=== PATIENT | female | born 1990 | race Caucasian/White ===

== ENCOUNTER 2019-08-04 17:26 | Observation (INO) | payer MEDICAID ==
[~2019-08-04] VITALS: Ht 160 cm; Wt 107.5 kg
[2019-08-04 18:03] LABS: CLARITY URINE CLEAR (CLEAR); COLOR URINE YELLOW (YELLOW); KETONES URINE NEGATIVE (NEGATIVE); LEUKOCYTE ESTERASE URINE TRACE (NEGATIVE); NITRITE URINE NEGATIVE (NEGATIVE); OCCULT BLOOD URINE NEGATIVE (NEGATIVE); PH URINE 6.5 (4.5-8.0); PROTEIN URINE NEGATIVE (NEGATIVE); SPECIFIC GRAVITY URINE 1.005 (1.005-1.030); UROBILINOGEN URINE 0.2 E.U./dL (0.2-1.0)
[2019-08-04 18:08] LABS: BASOPHILS % 0.3 % (0.0-2.0); EOSINOPHILS % 0.7 % (0.0-5.0); HEMATOCRIT. 36.7 % (36.0-48.0); HEMOGLOBIN. 12.5 g/dL (12.0-16.0); LYMPHOCYTES % 22.6 % (20.0-50.0); MEAN CORPUSCULAR HEMOGLOBIN 29.1 pg (28.0-32.0); MEAN CORPUSCULAR VOLUME 85.8 fL (81.0-99.0); MEAN PLATELET VOLUME 11.7 fl (7.4-10.4); MONOCYTES % 6.1 % (2.0-8.0); NEUTROPHILS % 70.3 % (40.0-76.0); PLATELET 107 x1000/uL (130-400); RED BLOOD CELL COUNT 4.28 mill/uL (4.2-5.4); RED CELL DISTRIBUTION WIDTH 13.5 % (11.6-14.6)
[2019-08-04 18:18] LABS: CHLORIDE 111 mEq/L (98-107)
[2019-08-04 18:23] LABS: D-DIMER 2.41 mg/L FEU (<0.50); INR 0.9; PARTIAL THROMBOPLASTIN TIME 26.7 sec (23.4-31.0); PROTHROMBIN TIME 9.3 sec (9.6-11.0)
[2019-08-04] MEDS ORDERED: NPH,100I SQ (18:34)
[2019-08-04] MEDS ORDERED: LABE100T5 MT (18:34)
== END 2019-08-04 20:00 | disposition home or self-care (01) ==
LOC: 8 EST LDRP 17:26
PROVIDERS: ADMIT Obstetrics & Gynecology; ATTEND Obstetrics & Gynecology
DX: O16.3 Unspecified maternal hypertension, third trimester (principal); Z3A.36 36 weeks gestation of pregnancy
CPT/HCPCS: 36415; 80053; 81003; 84550; 85025; 85379; 85384; 85610; 85730; 99281; G0378

== ENCOUNTER 2019-08-11 16:57 | Inpatient (IN) | payer MEDICAID ==
[~2019-08-11] VITALS: Ht 165.1 cm; Wt 107.5 kg
[~2019-08-11 16:57] MED LIST: LABE100T5 MT; NPH,100I SQ
[2019-08-11] MEDS ORDERED: DEXT 5%/LR + PITOCIN 20UNITS/L 1,000 ML IV SCH (17:41)
[2019-08-11] MEDS ORDERED: MISOPROSTOL 100MCG TABLET VG PRN (17:45)
[2019-08-11] MEDS ORDERED: NALOXONE HCL 0.4 MG/ML 1ML VIAL IM PRN (17:45)
[2019-08-11] MEDS ORDERED: LIDOCAINE HCL 1% 20ML VIAL (Pyxis) INJ INFIL SCH (17:45)
[2019-08-11] MEDS ORDERED: PENICILLIN G POTASSIUM 5 MMU in DEXT 5% WATER 100 ML IV SCH (18:00)
[2019-08-11] MEDS ORDERED: MISOPROSTOL 100MCG TABLET RC SCH (18:00)
[2019-08-11] MEDS ORDERED: MISOPROSTOL 200MCG TABLET RC SCH (18:15)
[2019-08-11 19:15] LABS: BASOPHILS % 0.5 % (0.0-2.0); EOSINOPHILS % 0.7 % (0.0-5.0); HEMATOCRIT. 37.6 % (36.0-48.0); HEMOGLOBIN. 12.7 g/dL (12.0-16.0); LYMPHOCYTES % 23.9 % (20.0-50.0); MEAN CORPUSCULAR VOLUME 85.9 fL (81.0-99.0); MEAN PLATELET VOLUME 11.3 fl (7.4-10.4); MONOCYTES % 4.6 % (2.0-8.0); NEUTROPHILS % 70.3 % (40.0-76.0); PLATELET 102 x1000/uL (130-400); RED BLOOD CELL COUNT 4.38 mill/uL (4.2-5.4); RED CELL DISTRIBUTION WIDTH 13.5 % (11.6-14.6)
[2019-08-11 19:19] LABS: CHLORIDE 109 mEq/L (98-107)
[2019-08-11 19:22] LABS: INR 0.9; PARTIAL THROMBOPLASTIN TIME 26.6 sec (23.4-31.0); PROTHROMBIN TIME 9.4 sec (9.6-11.0)
[2019-08-11] MEDS ORDERED: LABETALOL HCL 100MG TABLET PO SCH (19:30)
[2019-08-11 19:51] LABS: HEPATITIS B SURFACE ANTIGEN NEGATIVE
[2019-08-11 20:44] LABS: CLARITY URINE CLEAR (CLEAR); COLOR URINE YELLOW (YELLOW); KETONES URINE NEGATIVE (NEGATIVE); LEUKOCYTE ESTERASE URINE 1+ (NEGATIVE); NITRITE URINE NEGATIVE (NEGATIVE); OCCULT BLOOD URINE NEGATIVE (NEGATIVE); PH URINE 6.5 (4.5-8.0); PROTEIN URINE NEGATIVE (NEGATIVE); SPECIFIC GRAVITY URINE 1.009 (1.005-1.030); UROBILINOGEN URINE 0.2 E.U./dL (0.2-1.0)
[2019-08-11 20:57] LABS: *AMPHETAMINES SCREEN URINE NEGATIVE (NEGATIVE); *BARBITURATES SCREEN URINE NEGATIVE (NEGATIVE)
[2019-08-11 20:59] LABS: *BENZODIAZEPINES SCREEN URINE NEGATIVE (NEGATIVE); *COCAINE SCREEN URINE NEGATIVE (NEGATIVE); CANNABINOID URINE SCREEN NEGATIVE (NEGATIVE); METHADONE URINE SCREEN NEGATIVE (NEGATIVE); OPIATES URINE SCREEN NEGATIVE (NEGATIVE); PHENCYCLIDINE URINE SCREEN NEGATIVE (NEGATIVE)
[2019-08-11] MEDS: LACTATED RINGERS 1,000 ML IV SCH (21:11)
[2019-08-11] MEDS: MISOPROSTOL 100MCG TABLET VG PRN (21:55)
[2019-08-11] MEDS ORDERED: PENICILLIN G POTASSIUM 2.5 MMU in DEXTROSE 5% WATER 50 ML IV SCH (22:00)
[2019-08-11] MEDS ORDERED: LABETALOL HCL 5MG/ML VIAL 20ML IV ONE (22:30)
[2019-08-11] MEDS ORDERED: NIFEDIPINE 10MG CAPSULE PO ONE (22:30)
[2019-08-11] MEDS ORDERED: LABETALOL HCL 5MG/ML VIAL 20ML IV PRN ×3 (23:15)
[2019-08-12] MEDS: MAGNESIUM 20 G PREMIX (L & D) 500 ML IV SCH ×3 (00:12→18:27)
[2019-08-12] MEDS: BUTORPHANOL TARTRATE 2 MG/ML VIAL IV PRN ×2 (01:34→04:40)
[2019-08-12] MEDS: MISOPROSTOL 100MCG TABLET VG PRN (03:05)
[2019-08-12] MEDS ORDERED: ROPIVACAINE HCL/PF EPIDURAL 200 ML EPI SCH (05:15)
[2019-08-12 07:16] LABS: HEMATOCRIT 40.2 % (36.0-48.0); HEMOGLOBIN 13.6 g/dL (12.0-16.0); MEAN CORPUSCULAR HEMOGLOBIN 29.1 pg (28.0-32.0); MEAN CORPUSCULAR VOLUME 85.9 fL (81.0-99.0); PLATELET 108 x1000/uL (130-400); RED BLOOD CELL COUNT 4.68 mill/uL (4.2-5.4); RED CELL DISTRIBUTION WIDTH 13.6 % (11.6-14.6)
[2019-08-12] MEDS ORDERED: LABETALOL HCL 5MG/ML VIAL 20ML IV NR (07:20)
[2019-08-12 07:40] LABS: CHLORIDE 105 mEq/L (98-107)
[2019-08-12] MEDS: LACTATED RINGERS 1,000 ML IV SCH ×2 (08:19→22:01)
[2019-08-12] MEDS ORDERED: ONDANSETRON HCL 4MG/2ML INJ IM SCH (10:30)
[2019-08-12] MEDS: INSULIN LISPRO 100 UNITS/ML SUBCUT SCH ×2 (13:00→17:00)
[2019-08-12] MEDS ORDERED: DEXTROSE 50% WATER 50ML SYRINGE IV PRN (13:00)
[2019-08-12] MEDS ORDERED: OXYTOCIN 20 UNITS in LACTATED RINGERS 1,000 ML IV SCH (14:00)
[2019-08-12] MEDS ORDERED: ONDANSETRON HCL 4MG/2ML INJ IV NR (20:30)
[2019-08-12] MEDS ORDERED: TERBUTALINE SULFATE 1MG/ML VIAL SUBCUT PRN (20:30)
[2019-08-12] MEDS ORDERED: LACTATED RINGERS 1,000 ML IV SCH (20:30)
[2019-08-12] MEDS ORDERED: LABETALOL HCL 5MG/ML VIAL 20ML IV SCH (21:00)
[2019-08-13] MEDS ORDERED: DEXT 5%/LR + PITOCIN 20UNITS/L 1,000 ML IV SCH (07:16)
[2019-08-13] MEDS ORDERED: BENZOCAINE/LANOLIN/ALOE VERA SPRAY TOP PRN (07:30)
[2019-08-13] MEDS ORDERED: ACETAMINOPHEN WITH CODEINE 300/30MG TABLET PO PRN (07:30)
[2019-08-13] MEDS ORDERED: LANOLIN OINT 7GM TUBE TOP PRN (07:30)
[2019-08-13] MEDS ORDERED: BISACODYL 10MG SUPP PR PRN (07:30)
[2019-08-13] MEDS ORDERED: GLYCERIN/WITCH HAZEL LEAF MEDICATED PAD TOP PRN (07:30)
[2019-08-13] MEDS ORDERED: MAGNESIUM 20 G PREMIX (L & D) 500 ML IV SCH (07:45)
[2019-08-13] MEDS ORDERED: LABETALOL 5MG/ML SYR 20 MG/4 ML SYRINGE IV ONE ×2 (08:00)
[2019-08-13] MEDS ORDERED: LABETALOL 5MG/ML SYR 20 MG/4 ML SYRINGE IV NR (09:00)
[2019-08-13] MEDS ORDERED: LABETALOL HCL 100MG TABLET PO SCH ×2 (09:00→17:00)
[2019-08-13 11:30] VITALS: BP 141/75
[2019-08-13] MEDS: MAGNESIUM/ALUMINUM HYDROXIDE/SIMETHICONE 30ML UDC PO SCH ×4 (11:55→21:00)
[2019-08-13] MEDS: ACETAMINOPHEN WITH CODEINE 300/30MG TABLET PO PRN ×2 (11:55→17:26)
[2019-08-13] MEDS: SIMETHICONE 80MG TABLET CHEW PO SCH ×4 (11:55→21:41)
[2019-08-13] MEDS: PRENATAL VIT/FE FUMARATE/FA TABLET PO SCH (11:55)
[2019-08-13 12:00] VITALS: BP 143/78
[2019-08-13 16:21] VITALS: BP 131/82
[2019-08-13] MEDS: LABETALOL HCL 200MG TABLET PO SCH (17:25)
[2019-08-13] MEDS: LACTATED RINGERS 1,000 ML IV SCH (17:39)
[2019-08-13 20:19] VITALS: BP 133/74
[2019-08-13] MEDS: INSULIN LISPRO 100 UNITS/ML SUBCUT SCH (21:00)
[2019-08-13] MEDS ORDERED: BLOOD SUGAR DIAGNOSTIC STRIP TEST SCH (21:00)
[2019-08-13] MEDS: DOCUSATE SODIUM 100MG CAPSULE PO SCH (21:41)
[2019-08-14] MEDS: IBUPROFEN 400MG TABLET PO PRN ×2 (00:10→09:39)
[2019-08-14 01:57] VITALS: BP 139/79
[2019-08-14 06:00] VITALS: BP 158/75
[2019-08-14 09:00] VITALS: BP 148/89
[2019-08-14] MEDS: LABETALOL HCL 200MG TABLET PO SCH ×2 (09:00→19:34)
[2019-08-14] MEDS: PRENATAL VIT/FE FUMARATE/FA TABLET PO SCH (09:39)
[2019-08-14] MEDS: FERROUS SULFATE 325MG TABLET PO SCH ×2 (09:39→13:39)
[2019-08-14 10:00] LABS: BASOPHILS % 0.6 % (0.0-2.0); EOSINOPHILS % 1.3 % (0.0-5.0); HEMATOCRIT. 32.7 % (36.0-48.0); LYMPHOCYTES % 30.3 % (20.0-50.0); MEAN CORPUSCULAR HEMOGLOBIN 29.3 pg (28.0-32.0); MEAN CORPUSCULAR VOLUME 86.7 fL (81.0-99.0); NEUTROPHILS % 61.8 % (40.0-76.0); PLATELET 102 x1000/uL (130-400); RED BLOOD CELL COUNT 3.77 mill/uL (4.2-5.4); RED CELL DISTRIBUTION WIDTH 13.7 % (11.6-14.6)
[2019-08-14 13:00] VITALS: BP 139/75
[2019-08-14] MEDS: MAGNESIUM/ALUMINUM HYDROXIDE/SIMETHICONE 30ML UDC PO SCH ×2 (19:33→21:40)
[2019-08-14 20:10] VITALS: BP 143/77
[2019-08-14] MEDS: DOCUSATE SODIUM 100MG CAPSULE PO SCH (21:40)
[2019-08-14] MEDS: SIMETHICONE 80MG TABLET CHEW PO SCH (21:40)
[2019-08-14] MEDS: ACETAMINOPHEN WITH CODEINE 300/30MG TABLET PO PRN (21:46)
[2019-08-15] MEDS: ACETAMINOPHEN WITH CODEINE 300/30MG TABLET PO PRN (04:10)
[2019-08-15 04:18] VITALS: BP 150/91
[2019-08-15] MEDS ORDERED: IBUP-2029 MT (04:35)
[2019-08-15 07:30] VITALS: BP 160/86
[2019-08-15] MEDS ORDERED: INFLUENZA VIRUS VACCINE(AFLURIA) 0.5ML SYR IM ONE (09:00)
[2019-08-15] MEDS: LABETALOL HCL 200MG TABLET PO SCH (09:00)
[2019-08-15] MEDS: PRENATAL VIT/FE FUMARATE/FA TABLET PO SCH (09:01)
[2019-08-15] MEDS: MAGNESIUM/ALUMINUM HYDROXIDE/SIMETHICONE 30ML UDC PO SCH (09:01)
[2019-08-15] MEDS: SIMETHICONE 80MG TABLET CHEW PO SCH (09:01)
[2019-08-15] MEDS: FERROUS SULFATE 325MG TABLET PO SCH (09:02)
== END 2019-08-15 11:30 | disposition home or self-care (01) | DRG 560 ==
LOC: OBSVTOIN 16:57 → 8 EST LDRP 16:57 → 8 EST A/PP 08-13 10:30
PROVIDERS: ADMIT Obstetrics & Gynecology; ATTEND Obstetrics & Gynecology
PROC: 10E0XZZ Delivery of Products of Conception, External Approach (ICD-10-PCS; principal; 2019-08-13)
PROC: 0KQM0ZZ Repair Perineum Muscle, Open Approach (ICD-10-PCS; 2019-08-13)
PROC: 3E0R3BZ Introduction of Anesthetic Agent into Spinal Canal, Percutaneous Approach (ICD-10-PCS; 2019-08-13)
PROC: 00HU33Z Insertion of Infusion Device into Spinal Canal, Percutaneous Approach (ICD-10-PCS; 2019-08-13)
DX: O77.0 Labor and delivery complicated by meconium in amniotic fluid (principal); O16.4 Unspecified maternal hypertension, complicating childbirth; O24.429 Gestational diabetes mellitus in childbirth, unspecified control; O99.214 Obesity complicating childbirth; O70.1 Second degree perineal laceration during delivery; Z37.0 Single live birth; Z3A.37 37 weeks gestation of pregnancy; Z79.899 Other long term (current) drug therapy; Z88.8 Allergy status to other drugs, medicaments and biological substances
CPT/HCPCS: 36415; 80305; 81003; 82947; 82962; 83735; 84550; 85027; 85384; 86592; 86703; 86762; 86850; 86900; 87340; 90686; G0378; J0595; J2405; J2540; J2795; J3475; J3490; J7060; J7120; A4315